=== PATIENT | female | born 1995 | race Two or more races ===

== ENCOUNTER 2019-04-13 18:27 | Inpatient (IN) | payer MEDICAID, OTHER ==
[~2019-04-13] VITALS: Ht 162.6 cm; Wt 60.8 kg
[2019-04-13 19:06] VITALS: BP 127/88
--- NOTE | 2019-04-13 19:30 | NUR ---
PT TAKEN TO BED 7
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
--- NOTE | 2019-04-13 19:45 | NUR ---
Note leobardo in EDM - 04/13/19 at 1955 by CIPRIANO CALLED [facility]ISON [facility], SPOKE TO ARAM Decker OP #. WILL CALL BACK IN 4 HOURS. ANA MADE AWARE. SUGGESTED ACETAMINOPEHN OD PROTOCOL TESTS.
--- NOTE | 2019-04-13 19:48 | NUR ---
CALLED [facility]ISON [facility], SPOKE TO ARAM Decker OP #. WILL CALL BACK IN 4 HOURS. ANA MADE AWARE. SUGGESTED ACETAMINOPEHN OD PROTOCOL TESTS.
[2019-04-13] MEDS ORDERED: ONDANSETRON 4 MG/2 ML VIAL IVP ONE (20:30)
[2019-04-13] MEDS ORDERED: NACL 0.9% 1,000 ML IV ONE ×2 (20:30→22:35)
--- NOTE | 2019-04-13 21:07 | NUR ---
TELEPSYCH INITIATED AT THIS TIME PER DR. João WILSON
--- NOTE | 2019-04-13 21:18 | NUR ---
PT RESTING WITH EYES CLOSED, VISIBLE RISE AND FALL OF THE CHEST. MOTHER AT BEDSIDE. 1-1 SITTER REMAINS AT BEDSIDE. VSS. WILL CONTINUE TO MONITOR.
--- NOTE | 2019-04-13 21:30 | NUR ---
PT RESPIRATIONS ARE EVEN AND UNLABORED. O2SAT @ 99% ON RA. DENIES COUGH. AFEBRILE. PT HAS C/O NAUSEA. ABD PAIN 9/10 IN BOTH LUQ AND RUQ. LAST BM 04/13/18. ABD SOFT, ROUND, AND NONTENDER. DR WILSON NOTIFIED OF NAUSEA AND ABD PAIN.
--- NOTE | 2019-04-13 21:54 | NUR ---
CALL FROM TELEPSYCH, DR. PRIETO, WHO SPOKE WITH DR. WILSON
[2019-04-13] MEDS ORDERED: KETOROLAC 30 MG/ML VIAL IVP ONE (21:55)
--- NOTE | 2019-04-13 21:59 | NUR ---
TELEPSYCH DOCTOR SPEAKING WITH PATIENT VIA REMOTE COMMUNICATION
[2019-04-13 22:15] LABS: BASOPHILS % (AUTO) 0.1 % (0.0-2.0); HEMATOCRIT 38.1 % (36-48); HEMOGLOBIN 12.3 g/dL (12.0-16.0); LYMPHOCYTES # (AUTO) 0.7 K/uL (2.5-16.5); LYMPHOCYTES % (AUTO) 5.5 % (20.5-51.1); MEAN CORPUSCULAR HEMOGLOBIN 30 pg (27-31); MEAN CORPUSCULAR HGB CONC 32 g/dL (33-37); MEAN CORPUSCULAR VOLUME 93.3 fL (80-94); MONOCYTES # (AUTO) 0.7 K/uL (0.8-1.0); MONOCYTES % (AUTO) 5.7 % (1.7-9.3); NEUTROPHILS % (AUTO) 88.7 % (42.2-75.2); PLATELET COUNT (AUTO) 228 K/uL (140-450); RED BLOOD CELL COUNT(AUTO) 4.09 MIL/uL (4.20-5.40); RED CELL DISTRIBUTION WIDTH 14.5 % (11.6-13.7); WHITE BLOOD COUNT (AUTO) 12.4 K/uL (4.8-10.8)
--- NOTE | 2019-04-13 22:35 | NUR ---
SPOKE WITH ARAM FROM [facility]. LET HIM KNOW TOXICOLOGY AND LIVER FUNCTION TESTS WERE STILL PENDING. HE STATED HE WILL CALL BACK. [phone]
--- NOTE | 2019-04-13 23:10 | NUR ---
SPOKE WITH JOHANA FROM [facility] TO EVALUATE PT FOR 5150 HOLD PLACEMENT DTS. SHE STATED ON OFFICER WILL BE IN SHORTLY TO ASSESS PT.
[2019-04-13 23:35] LABS: ALBUMIN 3.4 g/dL (3.4-5.0); ANION GAP 13.3 (8-16); ASPARTATE AMINOTRANSFERASE 17 U/L (15-37); CARBON DIOXIDE 27.6 mmol/L (21-32); CHLORIDE 105 mmol/L (98-107); CREATININE 0.5 mg/dL (0.6-1.3); GFR ARICAN-AMERICAN 197 mL/min (>90); GLUCOSE 98 mg/dL (74-106); SODIUM SERUM 143 mmol/L (136-145); TOTAL BILIRUBIN 2.1 mg/dL (0.0-1.0); UREA NITROGEN, BLOOD 6 mg/dL (7-18)
--- NOTE | 2019-04-13 23:35 | NUR ---
SPOKE WITH RENETTA FROM [facility]. SHE STATED IF ABNORMAL VALUES ARE FOUND IN TOXICOLOGY AND LIVER FUNCTION TESTS, THAT THEY RECOMEND TO GIVE ACETYLCHOLINE.
--- NOTE | 2019-04-13 23:37 | NUR ---
[place] [employer] AT BEDSIDE
[2019-04-13 23:45] LABS: POTASSIUM 2.9 mmol/L (3.5-5.1)
[2019-04-13] MEDS ORDERED: POTASSIUM CHLORIDE 10 MEQ TABER PO ONE (23:45)
[2019-04-13 23:48] LABS: ACETAMINOPHEN < 0.5 ug/ml (10-30); SALICYLATE < 2.8 mg/dL (2.8-20.0)
--- NOTE | 2019-04-14 00:38 | NUR ---
PT AMBULATED TO RESTROOM TO COLLECT URINE, BENJAMIN KOENIG ACCOMPANYING PT.
[2019-04-14 00:55] LABS: APPEARANCE,URINE CLOUDY (CLEAR); BILIRUBIN,URINE 1+ (NEGATIVE); BLOOD, URINE 1+ (NEGATIVE); COLOR,URINE ORANGE (YELLOW); LEUKOCYTE ESTERASE ,URINE 1+ (NEGATIVE); NITRITE, URINE NEGATIVE (NEGATIVE); UGLUCOSE NEGATIVE (NEGATIVE)
--- NOTE | 2019-04-14 01:06 | NUR ---
PT AROUSABLE TO NAME, STATES SHE IS TIRED AND JUST WANTS TO SLEEP. VSS. 1-1 SITTER REMAINS AT BEDSIDE. WILL CONTINUE TO MONITOR.
[2019-04-14 01:08] LABS: BARBITURATE, URINE NEG. ng/ml (NEG <=200); BENZODIAZEPINE, URINE NEG. ng/mL (NEG <=200); CANNABINOID, URINE NEG. ng/mL (NEG <=50); COCAINE, URINE NEG. ng/mL (NEG <=300); OPIATE, URINE POS. ng/mL (NEG <=2000); PHENCYCLIDINE SCREEN,URINE NEG. ng/mL (NEG <=25)
[2019-04-14] MEDS ORDERED: cefTRIAXone 1,000 MG in LIDOCAINE MPF 1% 2.1 ML IM ONE (01:15)
[2019-04-14 01:18] LABS: WBC,URINE 60-80 /HPF (0-5)
[2019-04-14] MEDS ORDERED: LIDOCAINE MPF 1% 5 ML ONE (01:20)
[2019-04-14] MEDS ORDERED: cefTRIAXone 1,000 MG VIAL ONE (01:20)
--- NOTE | 2019-04-14 01:30 | NUR ---
REPORT GIVEN TO TARUN KOENIG. PT AXO X 4 RESPIRATIONS ARE EVEN AND UNLABORED. SKIN IS WARM AND DRY TO TOUCH. 0/10 PAIN.
--- NOTE | 2019-04-14 02:55 | NUR ---
PT SEEN WITH EYES CLOSED. VISIBLE CHEST RISE AND FALL NOTED. 1:[address] SAFETY MEASURES IN PLACE. WILL CONTINUE TO MONITOR.
--- NOTE | 2019-04-14 02:59 | NUR ---
[facility] has received packet via fax from ED and will begin working on bed placement with contracted psych facilities.
--- NOTE | 2019-04-14 03:09 | NUR ---
New referrals were faxed out to the following [facility] contracted facilities for AM review. [facility], spoke with Guy, no bed vacancies at this time. [facility], spoke with Wanda, no beds available at this time, packet was faxed. [facility], spoke with Nav, no bed vacancies at this time. [facility], spoke with Judson, no beds available, packet was faxed for AM review. [facility], spoke with Hanny, no beds available at this time, packet was faxed for AM review. [facility], spoke with Niurka, no bed vacancies at this time. [facility], packet was faxed. ED will be notified if a bed becomes available and will endorse to AM shift.
[2019-04-14] MEDS ORDERED: ACETAMINOPHEN 325 MG TAB PO PRN ×2 (05:15→05:30)
[2019-04-14] MEDS ORDERED: LORazepam 2 MG/ML VIAL IVP PRN ×2 (05:15→05:30)
[2019-04-14] MEDS ORDERED: ONDANSETRON 4 MG/2 ML VIAL IVP PRN ×2 (05:15→05:30)
--- NOTE | 2019-04-14 05:30 | NUR ---
PT ADMITTED TO THE UNIT FROM ED. PATIENT IS AWAKE, ALERT AND ORIENTED. PT ON ROOM AIR, NO SOB. PT IS WITHDRAWN BUT CALM AND COOPERATIVE WITH CARE. NO ACTIVE VOMITING AT THIS TIME. FALL PRECAUTIONS IN PLACE. PT WITH 1:1 SITTER
--- NOTE | 2019-04-14 05:31 | NUR ---
PATIENT ADMITTED TO MED SURG FLOOR. TAKEN IN WHEELCHAIR. REPORT GIVEN TO ALFREDO KOENIG. PATIENT AAO AND STABLE AT TIME OF TRANSFER
--- NOTE | 2019-04-14 06:22 | NUR ---
Received report from freddy. Will continue to locate placement Addendum: 04/14/19 at 1041 by Mckenzie Vee CM DC PLANNING PT IS ACCEPTED AT [facility] ,ACCEPTING DR FLORIAN , ARRANGED TRANSPORT WITH ILIANA APODACA JAWBONE PULLER TIME AT 11:45 . CALLED IE SPOKE WITH AUDRA HEIN WILL CALL BACK WITH THE [facility] FOR TRANSPORT.
--- NOTE | 2019-04-14 07:30 | NUR ---
PT REPORT GIVEN AT BEDSIDE. PT ENDORSED IN STABLE CONDITION
--- NOTE | 2019-04-14 07:30 | NUR ---
RECEIVED PT AAOX4. NO SOB NOTED. NO C/O PAIN AT THIS TIME. IV TO LT AC PATENT AND INTACT. CHEST CLEAR. DIMINISHED AIR ENTRY TO THE BASES. ABDOMEN SOFT, BOWEL SOUNDS PRESENT. WITH SITTER AT THE BEDSIDE. WILL CONTINU TO MONITOR FOR SUICIDAL IDEATION.
[2019-04-14 08:00] VITALS: BP 135/73
--- NOTE | 2019-04-14 08:36 | NUR ---
PATIENT HAS BEEN SCREENED AND CATEGORIZED LOW NUTRITION RISK. PATIENT WILL BE SEEN WITHIN 7 DAYS OF ADMISSION. 04/20/[address]
--- NOTE | 2019-04-14 09:55 | NUR ---
LARISA FROM [facility]ISON [facility] CALLED, UPDATED WITH PT'S STATUS. ALL QUESTIONS ANSWERED.
--- NOTE | 2019-04-14 10:30 | NUR ---
ZOILA FROM [facility] CALLED, STATED THEY HAVE A BED FOR PT. NOTIFIED DR. GRANADO AND KRISH-ASSISTANT FIELD HOCKEY COACH. ADMITTING PHYSICIAN AT [facility] IS DR. POOLE.
[2019-04-14] MEDS ORDERED: HYDROcodone/APAP 5/325 MG 1 TAB TAB PO PRN (10:45)
--- NOTE | 2019-04-14 12:00 | NUR ---
DISCHARGE INSTRUCTIONS GIVEN TO PT WHICH VERBALIZED FULL UNDERSTANDING OF THE TRANSFER TO IN PT PSYCH FACILITY. IV REMOVED, CANNULA TIP INTACT. ALL BELONGINGS GIVEN TO PT FROM SECURITY.
--- NOTE | 2019-04-14 12:10 | NUR ---
PT WHEELED OUT BY [facility] IN STABLE CONDITION. NO SOB NOTED. NO COMPLAINTS MADE. PT IS TRANSFERRED TO [facility] UNDER THE CARE OF DR. POOLE.
--- NOTE | 2019-04-14 12:13 | NUR ---
Electrophysiologist Note: SW attempted to complete screening for patient, but patient was discharged.
== END 2019-04-14 12:10 | disposition designated cancer center or children's hospital (05) | DRG 756 ==
LOC: MED 18:27 → MTU 04-14 05:13 → MED 04-14 05:23
PROVIDERS: ADMIT Internal Medicine Pulmonary Disease; ATTEND Internal Medicine Pulmonary Disease
DX: R45.851 Suicidal ideations (principal); E87.6 Hypokalemia; F32.9 Major depressive disorder, single episode, unspecified; F43.10 Post-traumatic stress disorder, unspecified; N39.0 Urinary tract infection, site not specified
CPT/HCPCS: 36415; 80053; 80305; 81001; 81025; 85025; 87081; 87086; 96361; 96374; 96375; 99285; G0480; G0482; J0696; J1885; J2001; J2405; J7030

== ENCOUNTER 2019-06-14 04:00 | Emergency (ER) | payer OTHER ==
[~2019-06-14] VITALS: Ht 162.6 cm; Wt 59.9 kg
[2019-06-14 04:10] VITALS: BP 126/62
--- NOTE | 2019-06-14 04:10 | NUR ---
PT TAKEN TO BED 8
--- NOTE | 2019-06-14 04:21 | NUR ---
Dr. Lewis examining patient.
--- NOTE | 2019-06-14 04:21 | NUR ---
23 Y/O FEMALE C/O TOOTHACHE X THIS AM. RATES PAIN 7/10 AND DESCRIBES IT ACHING. PT STATES SHES 6 WEEKS PREG. TOOTHACHE IS LOCATED ON LEFT SIDE ON UPPER AND BOTTOM BACK. VSS. A&O X4. PT STATES SHE TOOK OTC ANESTHESIA MED 1 HR AGO. DENIES ANY FEVER. NO SIGNS OF INFECTION NOTED. NO REDNESS OR SWELLING OR DISCHARGE NOTED ON LEFT SIDE OF INNER MOUTH. NKA. PMH: NONE.
--- NOTE | 2019-06-14 04:23 | NUR ---
ANA GATICA AT BEDSIDE TO EVAL PT.
[2019-06-14] MEDS ORDERED: AMOXICILLIN 500 MG CAP PO ONE (04:25)
[2019-06-14] MEDS ORDERED: IBUPROFEN 800 MG TAB PO ONE (04:25)
[2019-06-14 05:00] VITALS: BP 126/62
--- NOTE | 2019-06-14 05:00 | NUR ---
Patient discharged with v/s stable. Written and verbal after care instructions given and explained. Patient alert, oriented and verbalized understanding of instructions. Ambulatory with steady gait. All questions addressed prior to discharge. ID band removed. Patient advised to follow up with PMD. Rx of AMOXICILLIN, MTROIN, AND TYLENOL given. Patient educated on indication of medication including possible reaction and side effects. Opportunity to ask questions provided and answered.
== END 2019-06-14 05:00 | disposition home or self-care (01) ==
LOC: MED 04:00
DX: O26.891 Other specified pregnancy related conditions, first trimester (principal); K04.7 Periapical abscess without sinus; R03.0 Elevated blood-pressure reading, without diagnosis of hypertension
CPT/HCPCS: 99283

== ENCOUNTER 2023-04-11 10:19 | Emergency (ER) | payer OTHER ==
[~2023-04-11] VITALS: Ht 162.6 cm; Wt 72.1 kg
[~2023-04-11 10:19] MED LIST: FERR325E14 PO; IBUP-2213 PO; PNV91TAB10 PO
[2023-04-11 10:28] VITALS: BP 130/82; PULSE 78; RESP 18; TEMP 98.2; O2SAT 99
[2023-04-11] MEDS ORDERED: IBUP100S26 PO (11:05)
[2023-04-11] MEDS ORDERED: AMOX250P30 PO (11:05)
[2023-04-11] MEDS ORDERED: IBUPROFEN CHILDRENS 100 MG/5 ML UDC PO ONE (11:05)
== END 2023-04-11 11:17 | disposition home or self-care (01) ==
LOC: MED 10:19
DX: I88.9 Nonspecific lymphadenitis, unspecified (principal); B34.9 Viral infection, unspecified; Z79.899 Other long term (current) drug therapy
CPT/HCPCS: 87081; 99283